=== PATIENT | female | born 1930 ===

== ENCOUNTER 2017-03-11 09:16 | Emergency (ER) | payer BC, MEDICARE ==
[2017-03-11 09:20] VITALS: BP 160/84; PULSE 57; RESP 24; O2SAT 93
[2017-03-11 09:28] VITALS: O2SAT 93
[2017-03-11 09:30] VITALS: O2SAT 93
[2017-03-11] MEDS ORDERED: VITA250C3 CHEW (09:45)
[2017-03-11] MEDS ORDERED: SERT-132 PO (09:45)
[2017-03-11] MEDS ORDERED: NITR0.4S SL (09:45)
[2017-03-11] MEDS ORDERED: LORA-373 PO (09:45)
[2017-03-11] MEDS ORDERED: DONE5TAB7 PO (09:45)
[2017-03-11] MEDS ORDERED: POTA-163 PO (09:45)
[2017-03-11] MEDS ORDERED: GUAI600T11 PO (09:45)
[2017-03-11] MEDS ORDERED: ZOFR4TAB PO (09:45)
[2017-03-11] MEDS ORDERED: PERC5TAB12 PO (09:45)
[2017-03-11] MEDS ORDERED: CALC750C21 CHEW (09:45)
[2017-03-11] MEDS ORDERED: OMEP20TA PO (09:45)
[2017-03-11] MEDS ORDERED: WARF-58 PO (09:45)
[2017-03-11] MEDS ORDERED: METO25TA3 PO (09:45)
[2017-03-11] MEDS ORDERED: ASPI81CH37 CHEW (09:45)
[2017-03-11] MEDS ORDERED: CALC500C16 CHEW (09:45)
[2017-03-11] MEDS ORDERED: FERR150C PO (09:45)
[2017-03-11] MEDS ORDERED: MORPHINE SULFATE ORAL SOLN 10 MG/0.5 ML SYRINGE SL ONE (10:00)
[2017-03-11] MEDS ORDERED: GLYCOPYRROLATE 0.2 MG/ML VIAL IV PUSH ONE (10:00)
[2017-03-11] MEDS ORDERED: MORPHINE SULFATE 4 MG/ML INJ IV PUSH PRN (10:00)
--- NOTE | 2017-03-11 11:32 | PD ---
HPI Chief Complaint: Respiratory Symptoms Time Seen by Provider: 09:23 Travel History International Travel<30 days: No Contact w/Intl Traveler<30days: No Traveled to known affect area: No History of Present Illness HPI This is an 87-year-old female who presents to the emergency department found unresponsive at her alf this morning. She's not been seen normal since last night. She does have a history of stroke and is on Coumadin. EMS transported the patient with oxygen. She has a signed DO NOT RESUSCITATE with her. PFSH Past Medical History Atrial Fibrillation: Yes Cerebrovascular Accident: Yes Past Surgical History Cardiac Surgery: Yes (PACEMAKER) Social History Alcohol Use: No Tobacco Use: No Substance Use: No Allergies-Medications (Allergen,Severity, Reaction): Coded Allergies: ciprofloxacin (Verified Allergy, Unknown, 03/11/17) hydrocodone (Verified Allergy, Unknown, 03/11/17) levofloxacin (Verified Allergy, Unknown, 03/11/17) metronidazole (Verified Allergy, Unknown, 03/11/17) nitrofurantoin (Verified Allergy, Unknown, 03/11/17) pregabalin (Verified Allergy, Unknown, 03/11/17) Reported Meds & Prescriptions Reported Meds & Active Scripts Active Reported Donepezil 5 Mg Tab 5 Mg PO HS Percocet (Oxycodone-Acetaminophen) 5-325 mg Tab 1 Tab PO Q6H PRN Vitamin C (Ascorbic Acid) 250 Mg Chew 500 Mg CHEW DAILY Sertraline (Sertraline HCl) 50 Mg Tab 50 Mg PO DAILY Potassium Chloride ER (Potassium Chloride) 20 Meq Tab 20 Meq PO DAILY Omeprazole 20 Mg Tab 20 Mg PO DAILY Tums E-X 750 (Calcium Carbonate (Antacid)) 750 Mg Chew 750 Mg CHEW PRN Calcium Carbonate (Antacid) 500 Mg Chew 500 Mg CHEW PRN Aspirin Low Dose (Aspirin) 81 Mg Chew 81 Mg CHEW DAILY Metoprolol Tartrate 25 Mg Tab 25 Mg PO BID Ferrex 150 (Polysaccharide Iron Complex) 150 Mg Iron Cap 150 Mg PO DAILY Warfarin 3 Mg Tab 3 Mg PO DAILY Zofran (Ondansetron HCl) 4 Mg Tab 4 Mg PO Q8HR PRN Nitrostat SL (Nitroglycerin) 0.4 Mg Subl 0.4 Mg SL DIRECTED PRN 1 tablet under the tongue as needed for chest pain. Repeat every 5 minutes for a total of 3 DOSES or call 911 if NO relief. Lorazepam 0.5 Mg Tab 0.5 Mg PO Q8H PRN Mucus Relief ER (Guaifenesin) 600 Mg Tab 600 Mg PO BID PRN Review of Systems ROS Limitations: Unresponsive Physical Exam Narrative GENERAL: Frail elderly female, snoring respirations SKIN: Skin tear on the right calf and large hematoma on the right upper arm HEAD: Atraumatic. Normocephalic. EYES: Pupils equal and round. No injection or drainage. ENT: Moist mucous membranes. Some dried blood around the mouth. NECK: Trachea midline. CARDIOVASCULAR: Regular rate and rhythm. No murmur appreciated. RESPIRATORY: Coarse respirations, sonorous, irregular GASTROINTESTINAL: Abdomen soft, non-tender, nondistended. MUSCULOSKELETAL: No obvious deformities. NEUROLOGICAL: Unresponsive with no purposeful movements. Intermittently moaning. Data Data Last Documented VS Vital Signs Date Time Temp Pulse Resp B/P (MAP) Pulse Ox O2 Delivery O2 Flow Rate FiO2 03/11/17 09:30 93 100 03/11/17 09:28 Non-Rebreather 03/11/17 09:20 57 24 160/84 (109) Orders Orders Code Status (03/11/17 09:23) Ed Comfort Care (03/11/17 09:23) NPO (03/11/17 09:23) Resp Oxygen Nasal Cannula (03/11/17 ) Hospice Consult (03/11/17 09:23) Morphine Inj (Morphine Inj) (03/11/17 10:00) Glycopyrrolate Inj (Robinul Inj) (03/11/17 10:00) Morphine Liq (Roxanol Liq) (03/11/17 10:00) MDM Medical Decision Making Medical Screen Exam Complete: Yes Emergency Medical Condition: Yes Interpretation(s) Bradycardic, borderline hypoxic Differential Diagnosis Hemorrhagic stroke, ischemic stroke, subdural hematoma, epidural hematoma, electrolyte abnormality, metabolic derangement, sepsis Narrative Course This is an 87-year-old female who presents to the emergency department having been found unresponsive in her alf bed. She has irregular respirations on exam, is not protecting her airway and appears to be actively dying. Differential is broad including hemorrhagic versus ischemic stroke, and sepsis or metabolic derangement. Her daughter is at the bedside. She has 2 living daughters and her is . Her daughter who lives in [place] is her medical power of emt paramedic. I spoke to her on the phone and she reaffirmed that her mother would not want to be on life support. She said she would be amenable to CPR. We had a conversation and I told her that CPR would likely be futile in this case and without respiratory intervention I think the patient will . Both sisters agree that their mother would not want to be maintained on life support. They were agreeable to a DNR/DNI order placed in the chart and they were agreeable to hospice consultation. They wanted to prioritize the comfort of their mother. They had a relative who was maintained on life support for 6 months and they said their mother would never want to live like that. Comfort care protocol was initiated in the emergency department and the animal shelter manager came to visit with the family. Patient will be dispositioned to hospice care. Critical Care Narrative Aggregate critical care time was 40 minutes. Time to perform other separately billable procedures was not included in the critical care time. My time did not include minutes spent treating any other patients simultaneously or on activities that did not directly contribute to the patient's treatment. The services I provided to this patient were to treat and/or prevent clinically significant deterioration that could result in: disability, Goals of care conversations were held with both patient's daughters and I reassessed the patient multiple times. I provided critical care services requiring my management, as noted below: Chart data review, documentation time, medication orders and management, vital sign assessments/reviewing monitor data, ordering and reviewing lab tests, ordering and interpreting/reviewing x-rays and diagnostic studies, care of the patient and discussion of the patient with the admitting physicians. S Diagnosis Primary Impression: Respiratory failure Qualified Codes: J96.00 - Acute respiratory failure, unspecified whether with hypoxia or hypercapnia Patient Instructions: General Instructions Disposition: 51 HOSPICE/MED FACILITY Condition: Serious Natasha Raymundo MD Mar 11, 2017 11:31
== END 2017-03-11 14:14 | disposition hospice, inpatient (51) ==
LOC: PHED 09:16
DX: J96.00 Acute respiratory failure, unspecified whether with hypoxia or hypercapnia (principal)
CPT/HCPCS: 96374